=== PATIENT | male | born 1970 | race Caucasian/White ===

== ENCOUNTER 2019-09-08 10:44 | Emergency (ER) | payer BC, SELFPAY ==
[2019-09-08 10:51] VITALS: BP 135/77; PULSE 92; RESP 16; TEMP 37.1; O2SAT 98
[2019-09-08 11:16] VITALS: BP 122/75; PULSE 89; RESP 18; O2SAT 97
--- NOTE | 2019-09-08 12:13 | ED.FEVER ---
HPI - Fever General Chief Complaint: Fever Stated Complaint: HEADACHES, FEVER Time Seen by Provider: 09/08/19 11:19 Source: patient Mode of arrival: ambulatory Limitations: no limitations History of Present Illness HPI Narrative: This is a 48-year-old male that presents the emergency department for fever x3 days. Also reports some myalgias and headache. Reports he was seen at another ER for this and the influenza test was negative. He was evaluated by his primary care doctor today and sent here for further evaluation. Denies vision changes, vomiting, numbness or weakness. Related Data Allergies Allergy/AdvReac Type Severity Reaction Status Date / Time aspirin Allergy Unknown Verified 09/08/19 11:19 codeine Allergy Unknown Verified 09/08/19 11:19 Review of Systems Review of Systems: Narrative: CONSTITUTIONAL: Reports fever, chills EYES: Denies visual changes ENT: Denies rhinorrhea, sore throat, or otalgia. RESPIRATORY: Denies cough or dyspnea GASTROINTESTINAL: Denies vomiting NEUROLOGIC: Reports headache. Denies numbness, or weakness. All systems reviewed & are unremarkable except as noted in HPI and below PMFSH Past Medical History Medical History (Updated 09/08/19 @ 12:16 by Angela Montoya PA-C) Anxiety Hypertension Mild intermittent asthma without complication Social History Social History (Updated 09/08/19 @ 10:07 by Rosio Kunz) Smoking status: Former smoker Tobacco type: cigarettes Second hand tobacco smoke exposure: No Alcohol intake: current Substance use: never Substance use type: does not use Exam Narrative: Exam Narrative: GENERAL: Well-appearing, well-nourished, and in no acute distress. HEAD: Normocephalic, atraumatic. EYES: PERRLA and EOMI. ENT: Nares clear, no rhinorrhea or epistaxis. Mucous membranes moist. Oropharynx without tonsillar hypertrophy exudate or other lesions. Bilateral TMs pearly doanhue non-bulging NECK: Supple. No adenopathy or masses. CHEST: Clear to auscultation. No respiratory distress. No wheezes rales or rhonchi HEART: Regular rate and rhythm. No murmur heard. Normal peripheral pulses. EXTREMITIES: Normal range of motion. No edema. Strength equal in bilateral upper and lower extremities SKIN: Warm, dry, no rash. NEURO: No focal deficits. Alert and oriented x3. Cranial nerves II through XII grossly intact. Normal [id number]-[id number] PSYCH: Normal mood and affect Course Vital Signs Vital signs: Vital Signs Temperature 98.8 F 09/08/19 10:51 Pulse Rate 92 09/08/19 10:51 Respiratory Rate 16 09/08/19 10:51 Blood Pressure 135/77 09/08/19 10:51 Pulse Oximetry 98 09/08/19 10:51 Temperature 98.8 F 09/08/19 10:51 Pulse Rate 89 09/08/19 11:16 Respiratory Rate 18 09/08/19 11:16 Blood Pressure 122/75 09/08/19 11:16 Pulse Oximetry 97 09/08/19 11:16 MDM - Fever MDM Narrative Medical decision making narrative: Patient presents the emergency department for fever, headache and myalgias. He is neurologically intact. In the ED he is afebrile and nontoxic-appearing. Influenza A is positive. Patient has had symptoms for 3 days now and is outside treatment window, he is also otherwise healthy so treatment is not indicated. Patient was instructed on symptomatic care. He is to follow-up with primary care doctor. He was given warnings to return to the ER Lab Data Labs: Influenza A Screen Positive Reference Range: Negative Influenza B Screen Negative Reference Range: Negative Critical Care Time Critical Care Time Critical Care Time: No Discharge Plan Discharge Clinical Impression: Influenza A Patient Disposition: Home, Self-Care Condition: Stable Instructions: Influenza (ED) Additional Instructions: Return to the emergency department for worsening symptoms or any other concerns Remain well-hydrated, get plenty of rest, no work or school for several days. Take Tylen
[2019-09-08 12:30] VITALS: BP 118/64; PULSE 84; RESP 18; O2SAT 98
== END 2019-09-08 12:32 | disposition home or self-care (01) ==
PROVIDERS: Emergency Provider Emergency Medicine; PCP Family Medicine
DX: J10.1 Influenza due to other identified influenza virus with other respiratory manifestations (principal); I10 Essential (primary) hypertension; Z87.891 Personal history of nicotine dependence; J45.20 Mild intermittent asthma, uncomplicated
CPT/HCPCS: 87804; 99283

== ENCOUNTER 2019-09-11 00:16 | Emergency (ER) | payer BC, SELFPAY ==
[2019-09-11 00:27] VITALS: BP 119/65; PULSE 102; RESP 18; TEMP 36.9; O2SAT 96
--- NOTE | 2019-09-11 00:27 | ED.HA ---
HPI - Headache General Chief Complaint: Headache Stated Complaint: FLU WITH HEADACHE Time Seen by Provider: 09/11/19 00:19 Source: patient Mode of arrival: ambulatory Limitations: no limitations History of Present Illness HPI Narrative: The pt is a 48 y/o male who presents to the ED with c/o GARCIA that began yesterday. The pt rates his GARCIA an 8/10 and states that it has not been alleviated by rotating with Ibuprofen 800mg and Tylenol. He states that he has been running a fever for 6 days. He went to the Urgent Care 5 days ago where he tested negative for influenza, but tested positive at the [facility] 3 days ago. The pt reports a 101-102F fever, poor appetite, sweats, and chills. He states that he is able to ride out the fever, but just wants his GARCIA relieved. MD elicited complaint: headache Onset (ago): day(s) (yesterday) Pain scale (0-10): 8 Relieving factors: nothing Context: other (positive for influenza) Associated symptoms: fever and other (poor appetite, sweats, chills.) Related Data Allergies Allergy/AdvReac Type Severity Reaction Status Date / Time aspirin Allergy Unknown Verified 09/11/19 00:31 codeine Allergy Unknown Verified 09/11/19 00:31 Review of Systems Review of Systems: All systems reviewed & are unremarkable except as noted in HPI and below Constitutional: Constitutional: Reports chills, Reports fever(s), Reports poor appetite and Reports other (sweats) Neurologic: Reports headache(s) PMFSH Past Medical History Medical History (Updated 09/11/19 @ 02:56 by Fernando Reilly MD) Anxiety Hypertension Mild intermittent asthma without complication Surgical History Surgical History (Updated 09/11/19 @ 00:52 by Gracie Guaman) No pertinent past surgical history Social History Social History Smoking status: Former smoker Tobacco type: cigarettes Second hand tobacco smoke exposure: No Alcohol intake: current Substance use: never Substance use type: does not use Gender identity (if verbalized by the patient): Male Exam Const: General: healthy appearing and no acute distress Nutritional Appearance: well nourished HENMT: Mouth: Yes lip normal and Yes moist mucous membranes abnormal Eyes: Conjunctivae: conjunctivae normal Pupils: Equal, round and reactive pupils present Resp: Effort & Inspection: normal respiratory effort Auscultation: clear to auscultation bilaterally Cardio: Rate: regular rate Rhythm: regular rhythm GI: GI Palp: Yes Soft to palpation and No Tenderness to palpation present (GI) Auscultation: normal bowel sounds Back/Spine/Pelvis: Back: other (full ROM) Skin: General skin exam: normal color, dry skin and other (warm) Neuro: General: patient oriented x3 Speech: normal speech Extrem: General: full ROM Psych: Mental Status: mental status grossly normal Affect: normal affect Course Vital Signs Vital signs: Vital Signs Temperature 36.9 C 09/11/19 00:27 Pulse Rate 102 H 09/11/19 00:27 Respiratory Rate 18 09/11/19 00:27 Blood Pressure 119/65 09/11/19 00:27 Pulse Oximetry 96 09/11/19 00:27 Temperature 36.9 C 09/11/19 00:27 Pulse Rate 98 09/11/19 03:15 Respiratory Rate 18 09/11/19 03:15 Blood Pressure 142/80 H 09/11/19 03:15 Pulse Oximetry 98 09/11/19 03:15 MDM - Headache MDM Narrative Medical decision making narrative: No meningeal signs on exam.. GARCIA is most likely related to the FLU. Resolved with treatment. Differential Diagnosis Differential diagnosis: Likely tension headache, headache and other (influenza) Medical Records Attestation: I reviewed the patient's medical records. Discharge Plan Discharge Clinical Impression: Influenza A Headache Qualifiers: Headache type: unspecified Headache chronicity pattern: acute headache Intractability: not intractable Qualified Code(s): R51 - Headache Patient Disposition: Home, Self-Care Condi
[2019-09-11] MEDS: SODIUM CHLORIDE 0.9% IV 1,000 ML 999 ML IV CONT (01:24)
[2019-09-11] MEDS: METOCLOPRAMIDE HCL INJ 10 MG/2 ML VIAL IV PUSH (01:26)
[2019-09-11] MEDS: KETOROLAC 30 MG/ML VIAL (*BKC) IV PUSH (01:26)
[2019-09-11 03:15] VITALS: BP 142/80; PULSE 98; RESP 18; O2SAT 98
--- NOTE | 2019-09-18 02:34 | PC.NURSE ---
LATE ENTRY This note is being entered to document information to the patient's record. The following information was omitted on [09/11/19], by [drew]. 1L of NS finished infusing at 02:20. 1G Ofirmev finished infusing at 01:40.
== END 2019-09-11 03:50 | disposition home or self-care (01) ==
PROVIDERS: Emergency Provider Emergency Medicine; PCP Family Medicine
DX: J10.1 Influenza due to other identified influenza virus with other respiratory manifestations (principal); R51 Headache; I10 Essential (primary) hypertension; J45.20 Mild intermittent asthma, uncomplicated; Z87.891 Personal history of nicotine dependence
CPT/HCPCS: 96361; 96374; 96375; 99284; J0131; J1100; J1200; J1885; J2765; J7030; L0140

== ENCOUNTER → 2021-02-05 08:16 | Outpatient (CLI) | payer BC, SELFPAY ==
[2021-02-05 17:12] LABS: SARS-CoV-2 RNA PCR Negative
== END ==
PROVIDERS: PCP Internal Medicine; Visit Provider Internal Medicine
DX: R05 Cough (principal); Z20.822 Contact with and (suspected) exposure to COVID-19
CPT/HCPCS: C9803; U0003; U0005